=== PATIENT | female | born 1945 | race Caucasian/White ===

== ENCOUNTER → 2016-09-10 | Day surgery (SDC) | payer OTHER, BC ==
[2016-08-27 10:57] VITALS: Ht 160 cm; Wt 61.4 kg
[~2016-09-10] VITALS: Ht 160 cm; Wt 61.4 kg
[~2016-09-10] MED LIST: 500ML BSS 0.3ML EPI 1:1000PF IRRIG ONE; ACETAMINOPHEN 325 MG TAB PO PRN; ADRENAL SUPPLEMENT PO; AMVISC PLUS 0.8ML SYRINGE INT OCU ONE; ATROPINE SULFATE 0.1 MG/ML 5ML SYR IV PRN; AcetaZOLAMIDE 250 MG TAB PO SCH; BETAXOLOL HCL 0.25% OP SUSP PER DROP CHARGE OPR SCH; BRIMONIDINE TART 0.2% OP SOLN PER DROP CHARGE ONE; ENDOCOAT 0.85ML SYRINGE INT OCU ONE; EpHEDrine SULFATE INJ 50 MG/ML AMP IV PRN; EpINEphrine INJ 1MG/ML AMP 1 MG/ML AMP ONE; LACTATED RINGER'S 1000ML 500 ML IV SCH; LIDOCAINE 4% OP SOLN DROP CHARGE ONE; LIDOCAINE 4% OP SOLN DROP CHARGE OPR SCH; LIDOCAINE HCL 1% MPF 2 ML VIAL ONE; MAGNESIUM CHELATE PO; MIDAZOLAM HCL 1 MG/ML 2ML VIAL ONE; MIX: 4ML BSS 1ML EPI 1:1000 PF INSTIL ONE; MOXIFLOXACIN OPH SOLN PER DROP CHARGE ONE; NUTRITIONAL PO; OCUCOAT 1 ML SOLN IO ONE; POVIDONE-IODINE OP SOLN 30 ML BTL ONE; PROPARACAINE 0.5% OP SOLN PER DROP CHARGE OPR SCH; TOBRAMYCIN/DEXAMETHASONE OPH OINT PER APPLN CHARGE ONE
--- NOTE | 2016-09-10 06:27 | History & Physical Bridge - [place] ---
H&P Re-Evaluation Bridge Note: I have examined the patient, reviewed the History & Physical and in the interval since the performance of the History & Physical I have noted the following changes of clinical significance: No changes noted
[2016-09-10] MEDS: PHENYLEPHRINE HCL 2.5% OP SOLN PER DROP CHARGE OPR SCH ×2 (06:53→06:58)
[2016-09-10] MEDS: TROPICAMIDE 1% OP SOLN PER DROP CHARGE OPR SCH ×2 (06:54→06:59)
[2016-09-10] MEDS: CYCLOPENTOLATE HCL 1% OP SOLN PER DROP CHARGE OPR SCH ×2 (06:55→07:00)
[2016-09-10] MEDS: MOXIFLOXACIN OPH SOLN PER DROP CHARGE OPR SCH ×2 (06:56→07:02)
--- NOTE | 2016-09-10 07:19 | Discharge Instructions-SurgCtr ---
Discharge Instructions Visit Reason for Visit: Cataract Right Eye Discharge Discharge Diagnosis / Problem: Lens implant right eye Discharge Goals Goal(s): Improve function Activity Recommendations Activity Limitations: resume your previous activity Lifting Limitations: no more than 10 pounds Exercise/Sports Limitations: gradually increase as tolerated May Resume Sexual Activity: when tolerated Shower/Bathe: tomorrow Driving or Machine Use: resume 1 day after discharge Anesthesia . Post Anesthesia Instructions: If you have had General Anesthesia or IV Sedation: * Do not drive today. * Resume driving when surgeon permits. * Do not make important decisions or sign legal documents today. * Call surgeon for: 1. Temperature elevations greater than 101 degrees F. 2. Uncontrollable pain. 3. Excessive bleeding. 4. Persistent nausea and vomiting. 5. Medication intolerance (nausea, vomiting or rash). * For nausea and vomiting use only clear liquids such as: tea, soda, bouillon until nausea subsides, then gradually increase diet as tolerated. * If you have any concerns or questions, call your surgeon's office. If physician is unavailable and it is an emergency, call 911 or go to the nearest emergency room. . Instructions / Follow-Up Instructions / Follow-Up ACTIVITY RECOMMENDATIONS: * Light activities. * Mild irritation and blurred vision are common for the first few days. * You may walk outside, read, watch television. * Redness around the white part of the eye is common. MEDICATIONS: Resume previous medications unless instructed otherwise by your surgeon. * Take white Diamox (Acetazolamide) tablet at 1 pm today. Start all eye drops at 1 pm today: * Eye drops (today and tomorrow): Durezol - one drop in operative eye every 3 hours while awake Ofloxacin - one drop in operative eye every 3 hours while awake SPECIAL CARE INSTRUCTIONS: * Tape plastic shield over eye to sleep at night. Call your doctor at with any concerns or problems. FOLLOW UP VISIT: Follow-up with Dr Merlos at [place] office as scheduled. Diet Recommendations Home Diet: no limitations Procedures Procedures Performed: cataract extraction with lens implant Pending Studies Studies pending at discharge: no Medical Emergencies . Who to Call and When: Medical Emergencies: If at any time you feel your situation is an emergency, please call 911 immediately. . Non-Emergent Contact Non-Emergency issues call your: Paver Layer Call Non-Emergent contact if: your pain is not controlled [phone] . . "Provider Documentation" section prepared by Elbert Merlos.
--- NOTE | 2016-09-10 07:22 | [facility] Operative Report ---
Operative Report 1. PREOPERATIVE DIAGNOSIS: Senile nuclear cataract, right eye. 2. POSTOPERATIVE DIAGNOSIS: Senile nuclear cataract, right eye. 3. PROCEDURE: Phacoemulsification of right cataract with posterior chamber lens implant, type Bausch & Lomb, model [id number], power +29.0 diopters. ANESTHESIA: Local standby. SURGEON: Dr. Merlos. COMPLICATIONS: None. OPERATING TIME: 10 minutes. 4. OPERATION AND FINDINGS: DESCRIPTION OF PROCEDURE: The right pupil was dilated. The anesthetic was administered using a topical technique. The cornea was marked. The right eye was prepped and draped. A speculum was placed. A clear corneal incision was formed. The chamber was filled with Amvisc Plus and Endocoat. Epinephrine solution was used. A paracentesis was placed. A capsulorrhexis was performed. The nucleus was hydrodissected. The lens was removed with phacoemulsification. Time was 2.94 seconds. The aspiration unit was used to remove the cortex. The capsule was filled with Amvisc Plus. The lens implant was folded and placed into the capsule. The lens implant was positioned properly. The incision was hydrated. The Amvisc was aspirated. The wound was secure. The chamber was deep. The pupil was round. TobraDex ointment and Vigamox solution were placed. The speculum was removed. The patient was returned to the Recovery Room in stable condition. I attest to the content of the Intraoperative Record and any orders documented therein. Any exceptions are noted below. The scribe's documentation has been prepared in my presence, under my direction and personally reviewed by me in its entirety. I confirm that the note above accurately reflects all work, treatment, procedures, and medical decision making performed by me. I personally scribed for Elbert Merlos M.D. ([email or web address]) on 09/10/16 at 07:22. Electronically submitted by Gia Ann ([facility]).
[2016-09-10 07:23] VITALS: TEMP 36.7
[2016-09-10 07:45] VITALS: BP 100/67; PULSE 81; O2SAT 97
--- NOTE | 2016-09-10 07:48 | Anesthesiology Progress Note ---
Anesthesia Post Op Note Date & Time Sep 10, 2016 at 07:48 Vital Signs Pain Intensity: 0 Vital Signs Past 12 Hours Date Time Temp Pulse Resp B/P Pulse Ox O2 Delivery O2 Flow Rate FiO2 09/10/16 07:23 36.7 72 16 110/65 98 Room Air 09/10/16 06:41 36.7 88 20 109/62 96 Room Air Notes Mental Status: alert / awake / arousable, participated in evaluation Pt Amnestic to Procedure: Yes Nausea / Vomiting: adequately controlled Pain: adequately controlled Airway Patency, RR, SpO2: stable & adequate BP & HR: stable & adequate Hydration State: stable & adequate Anesthetic Complications: no major complications apparent
== END | disposition home or self-care (01) ==
LOC: X.SURG 06:25
PROVIDERS: ATTEND Specialist
DX: H25.11 Age-related nuclear cataract, right eye (principal)

== ENCOUNTER → 2016-09-22 | Day surgery (SDC) | payer OTHER, BC ==
[2016-09-19 08:02] VITALS: Ht 160 cm; Wt 61.4 kg
[~2016-09-22] VITALS: Ht 160 cm; Wt 61.4 kg
[~2016-09-22] MED LIST changes: -ACETAMINOPHEN 325 MG TAB PO PRN; +BETAXOLOL HCL 0.25% OP SUSP PER DROP CHARGE OPL SCH; -BETAXOLOL HCL 0.25% OP SUSP PER DROP CHARGE OPR SCH; +BSS FLUSH ONE; +LIDOCAINE 4% OP SOLN DROP CHARGE OPL SCH; -LIDOCAINE 4% OP SOLN DROP CHARGE OPR SCH; +PROPARACAINE 0.5% OP SOLN PER DROP CHARGE OPL SCH; -PROPARACAINE 0.5% OP SOLN PER DROP CHARGE OPR SCH
[2016-09-22] MEDS: PHENYLEPHRINE HCL 2.5% OP SOLN PER DROP CHARGE OPL SCH ×2 (06:33→06:38)
[2016-09-22] MEDS: TROPICAMIDE 1% OP SOLN PER DROP CHARGE OPL SCH ×2 (06:34→06:39)
[2016-09-22] MEDS: CYCLOPENTOLATE HCL 1% OP SOLN PER DROP CHARGE OPL SCH ×2 (06:35→06:40)
[2016-09-22] MEDS: MOXIFLOXACIN OPH SOLN PER DROP CHARGE OPL SCH ×2 (06:36→06:46)
[2016-09-22 07:18] VITALS: TEMP 36.5
--- NOTE | 2016-09-22 07:27 | [facility] Post Operative Brief Note ---
Immediate Operative Summary Operative Date Sep 22, 2016. Pre-Operative Diagnosis Cataract left eye Post-Operative Diagnosis same Procedure(s) Performed Left Cataract Phacoemulsification With Intraocular Lens Implant Surgeon Dr Merlos Office Machine Installer Surgeon(s) 0 Estimated Blood Loss 0 Findings Nuclear cataract Fluids (cc crystalloids) 300 ml Specimens 0 Drains none Anesthesia L/S Complication(s) None Disposition Recovery Room / PACU
--- NOTE | 2016-09-22 07:30 | Discharge Instructions-SurgCtr ---
Discharge Instructions Visit Reason for Visit: Cataract Left Eye Discharge Goals Goal(s): Improve function Activity Recommendations Lifting Limitations: no more than 10 pounds Exercise/Sports Limitations: gradually increase as tolerated May Resume Sexual Activity: when tolerated Shower/Bathe: tomorrow Driving or Machine Use: resume 1 day after discharge Anesthesia . Post Anesthesia Instructions: If you have had General Anesthesia or IV Sedation: * Do not drive today. * Resume driving when surgeon permits. * Do not make important decisions or sign legal documents today. * Call surgeon for: 1. Temperature elevations greater than 101 degrees F. 2. Uncontrollable pain. 3. Excessive bleeding. 4. Persistent nausea and vomiting. 5. Medication intolerance (nausea, vomiting or rash). * For nausea and vomiting use only clear liquids such as: tea, soda, bouillon until nausea subsides, then gradually increase diet as tolerated. * If you have any concerns or questions, call your surgeon's office. If physician is unavailable and it is an emergency, call 911 or go to the nearest emergency room. . Diet Recommendations Home Diet: no limitations, resume previous diet Procedures Procedures Performed: Left Cataract Phacoemulsification With Intraocular Lens Implant Pending Studies Studies pending at discharge: no Medical Emergencies . Who to Call and When: Medical Emergencies: If at any time you feel your situation is an emergency, please call 911 immediately. . Non-Emergent Contact Non-Emergency issues call your: [employer] Call Non-Emergent contact if: your pain is not controlled . ACTIVITY RECOMMENDATIONS: * Light activities. * Mild irritation and blurred vision are common for the first few days. * You may walk outside, read, watch television. * Redness around the white part of the eye is common. MEDICATIONS: Resume previous medications unless instructed otherwise by your surgeon. * Take white Diamox (Acetazolamide) tablet at 1 pm today. Start all eye drops at 1 pm today: * Eye drops (today and tomorrow): Prednisone - one drop in operative eye every 3 hours while awake Ofloxacin - one drop in operative eye every 3 hours while awake SPECIAL CARE INSTRUCTIONS: * Tape plastic shield over eye to sleep at night. Call your doctor at with any concerns or problems. FOLLOW UP VISIT: Follow-up with Dr Merlos at [facility] as scheduled. . "Provider Documentation" section prepared by Elbert Merlos.
[2016-09-22 07:33] VITALS: BP 107/63; PULSE 75; O2SAT 98
--- NOTE | 2016-09-22 07:47 | OPERATIVE REPORT ---
DATE OF OPERATION: 09/22/2016 PREOPERATIVE DIAGNOSIS: Senile nuclear cataract, left eye. POSTOPERATIVE DIAGNOSIS: Senile nuclear cataract, left eye. PROCEDURE: Phacoemulsification of left cataract with posterior chamber lens implant, type Bausch \T\ Lomb, model [id number], power +26.50 Diopters. ANESTHESIA: Local standby. SURGEON: Dr. Merlos. COMPLICATIONS: None. OPERATING TIME: 10 minutes. OPERATION AND FINDINGS: PROCEDURE: The left pupil was dilated. The anesthetic was administered using a topical technique. The left eye was prepped and draped. A speculum was placed. A paracentesis was placed. The chamber was filled with Amvisc Plus and EndoCoat. Epinephrine solution was used. A clear corneal incision was formed. A capsulorrhexis was performed. The nucleus was hydrodissected. The lens was removed with phacoemulsification. Time was 3.39 seconds. The aspiration unit was used to remove the cortex. The capsule was filled with Amvisc Plus. The lens implant was folded and placed into the capsule. The incision was hydrated. The Amvisc was aspirated. The wound was secure. The chamber was deep. The pupil was round. TobraDex ointment and Vigamox solution were placed. The speculum was removed. DISPOSITION: The patient was returned to the recovery room in stable condition. I attest to the content of the Intraoperative Record and any orders documented therein. Any exceptions are noted below. I attest to the content of the Intraoperative Record and any orders documented therein. Any exceptio ns are noted below.
--- NOTE | 2016-09-22 07:50 | Anesthesia Progress Nt - [facility] ---
Anesthesia Post Op Note Date & Time Sep 22, 2016 at 07:50 Vital Signs Pain Intensity: 0 Vital Signs Past 12 Hours Date Time Temp Pulse Resp B/P Pulse Ox O2 Delivery O2 Flow Rate FiO2 09/22/16 07:33 75 16 107/63 98 Room Air 09/22/16 07:18 36.5 64 20 161/67 97 Room Air 09/22/16 06:25 36.5 67 22 94/57 96 Room Air Notes Mental Status: alert / awake / arousable, participated in evaluation Pt Amnestic to Procedure: Yes Nausea / Vomiting: adequately controlled Pain: adequately controlled Airway Patency, RR, SpO2: stable & adequate BP & HR: stable & adequate Hydration State: stable & adequate Anesthetic Complications: no major complications apparent
== END | disposition home or self-care (01) ==
LOC: X.SURG 06:03
PROVIDERS: ATTEND Specialist
DX: H25.12 Age-related nuclear cataract, left eye (principal)

== ENCOUNTER → 2017-03-12 | Outpatient (CLI) | payer OTHER, BC ==
[~2017-03-12] MED LIST changes: -500ML BSS 0.3ML EPI 1:1000PF IRRIG ONE; -AMVISC PLUS 0.8ML SYRINGE INT OCU ONE; -ATROPINE SULFATE 0.1 MG/ML 5ML SYR IV PRN; -AcetaZOLAMIDE 250 MG TAB PO SCH; -BETAXOLOL HCL 0.25% OP SUSP PER DROP CHARGE OPL SCH; -BRIMONIDINE TART 0.2% OP SOLN PER DROP CHARGE ONE; -BSS FLUSH ONE; -ENDOCOAT 0.85ML SYRINGE INT OCU ONE; -EpHEDrine SULFATE INJ 50 MG/ML AMP IV PRN; -EpINEphrine INJ 1MG/ML AMP 1 MG/ML AMP ONE; -LACTATED RINGER'S 1000ML 500 ML IV SCH; -LIDOCAINE 4% OP SOLN DROP CHARGE ONE; -LIDOCAINE 4% OP SOLN DROP CHARGE OPL SCH; -LIDOCAINE HCL 1% MPF 2 ML VIAL ONE; -MIDAZOLAM HCL 1 MG/ML 2ML VIAL ONE; -MIX: 4ML BSS 1ML EPI 1:1000 PF INSTIL ONE; -MOXIFLOXACIN OPH SOLN PER DROP CHARGE ONE; -OCUCOAT 1 ML SOLN IO ONE; -POVIDONE-IODINE OP SOLN 30 ML BTL ONE; -PROPARACAINE 0.5% OP SOLN PER DROP CHARGE OPL SCH; -TOBRAMYCIN/DEXAMETHASONE OPH OINT PER APPLN CHARGE ONE
--- NOTE | 2017-03-12 14:06 | DIAGNOSTIC IMAGING REPORT ---
THYROID ULTRASOUND HISTORY: THYROIDITIS COMPARISON: Thyroid ultrasound 11/15/2013. FINDINGS: Right lobe: 4.0 x 1.6 x 0.9 cm No nodules. Left lobe: 2.9 x 1.1 x 0.9 cm. No nodules. Isthmus: 2 mm in thickness. No nodules. Normal color flow within the thyroid gland. The thyroid gland is slightly heterogeneous. IMPRESSION: Normal thyroid ultrasound. Electronically signed by: Richard Squires M.D. 03/12/2017 2:05 PM Dictated Date/Time: 03/12/2017 2:04 PM
== END | disposition home or self-care (01) ==
LOC: C.ULTR 13:05
PROVIDERS: ATTEND Family Medicine
DX: E06.3 Autoimmune thyroiditis (principal)

== ENCOUNTER → 2017-06-11 | Outpatient (CLI) | payer OTHER, BC ==
--- NOTE | 2017-06-11 12:44 | DIAGNOSTIC IMAGING REPORT ---
ABDOMINAL ULTRASOUND COMPLETE HISTORY: Abdominal fullness.. COMPARISON: None. FINDINGS: Pancreas: The pancreas demonstrates a normal echotexture. Liver: Unremarkable. Gallbladder: A few small shadowing gallstones. No gallbladder wall thickening. CBD: 3 mm. Kidneys: No hydronephrosis. Spleen: Normal in size. Aorta: Normal in caliber. IVC: Patent. IMPRESSION: 1. Cholelithiasis. No gallbladder wall thickening. 2. Otherwise, normal abdominal ultrasound. Electronically signed by: Richard Squires M.D. 06/11/2017 12:43 PM Dictated Date/Time: 06/11/2017 12:41 PM
== END | disposition home or self-care (01) ==
LOC: C.ULTR 11:08
PROVIDERS: ATTEND Family Medicine
DX: R19.8 Other specified symptoms and signs involving the digestive system and abdomen (principal); M46.1 Sacroiliitis, not elsewhere classified; M76.30 Iliotibial band syndrome, unspecified leg; M70.61 Trochanteric bursitis, right hip

== ENCOUNTER 2025-06-09 05:25 | Observation (INO) ==
--- NOTE | 2025-05-10 13:01 | PAT Medication Instructions ---
Medication Instructions Date of Service May 10, 2025 Home Medications bioidentical estriol, progesterone, testosterone 1 applic PO DAILY estradiol 0.01% (0.1 mg/gram) vaginal cream 1 appful vaginal DAILY Ferrasorb - Iron 1 tab PO DAILY iodine 1 cap PO DAILY magnesium chelate, malate 1 cap PO DAILY magnesium glycinate 1 cap PO DAILY prasterone (DHEA) 25 mg capsule 25 mg PO DAILY tyrosine 1 cap PO DAILY ASK your prescriber and surgeon bioidentical estriol, progesterone, testosterone 1 applic PO DAILY STOP taking 2 weeks before surgery (or as soon as possible if surgery is within 2 weeks) prasterone (DHEA) 25 mg capsule 25 mg PO DAILY tyrosine 1 cap PO DAILY STOP taking 24 hours before surgery estradiol 0.01% (0.1 mg/gram) vaginal cream 1 appful vaginal DAILY DO NOT take the morning of surgery Ferrasorb - Iron 1 tab PO DAILY iodine 1 cap PO DAILY magnesium chelate, malate 1 cap PO DAILY magnesium glycinate 1 cap PO DAILY Take morning of surgery With a small sip of water, OTHERWISE NOTHING TO EAT OR DRINK AFTER MIDNIGHT: Other Notes If you have any questions please call us at [phone] or [phone] or [phone] or [phone]
--- NOTE | 2025-05-15 15:44 | Anesthesiology Consultation ---
Date of Service May 15, 2025 Assessment & Plan (1) Encounter for pre-operative examination: Chart Review Chart Review: Acceptable Risk for Surgery and Patient seen in Pre Admission Testing Patient sensitive to medications - Patient is not an ideal OPJ candidate (currently 23 hour obs) Per PAT appt on 05/15/25, no recent illness/disease exposures, illness related symptoms, or recent illness/disease positive tests. Will leave to surgeon's discretion if preop Covid testing needed Teaching & Discussion Pre-Anesthesia Teaching/Discussion Notes: Instructed NPO after midnight before surgery,except medications with 15 cc of water. Medication instructions provided according to the PAT guidelines. History Surgery Operation Date: 06/09/25 07:00 Proposed Procedures p Left Total Knee Arthroplasty - Joni Mauro MD Height/Weight Height: 5 ft 3 in Weight: 63.9 kg Allergies Allergy/AdvReac Type Severity Reaction Status Date / Time adhesive Allergy Intermediate Redness Verified 05/05/25 09:01 erythromycin base AdvReac Intermediate Racing Mind Verified 05/05/25 09:01 glucose AdvReac Intermediate Gastrointestinal Verified 05/05/25 09:01 Upset casein AdvReac Mild Gastrointestinal Verified 05/05/25 09:01 Upset gluten AdvReac Mild Sensitivity Verified 05/05/25 09:01 Newspaper Allergy Intermediate Itchiness Uncoded 05/05/25 09:01 Medications Home Medications Medication Instructions Recorded Confirmed Last Taken bioidentical estriol, 1 applic PO DAILY 06/02/23 05/05/25 Unknown progesterone, testosterone estradiol 0.01% (0.1 mg/gram) 1 appful vaginal DAILY 08/18/24 05/05/25 Unknown vaginal cream Ferrasorb - Iron 1 tab PO DAILY 05/05/25 05/05/25 Unknown iodine 1 cap PO DAILY 05/05/25 05/05/25 Unknown magnesium chelate, malate 1 cap PO DAILY 05/05/25 05/05/25 Unknown magnesium glycinate 1 cap PO DAILY 05/05/25 05/05/25 Unknown prasterone (DHEA) 25 mg capsule 25 mg PO DAILY 05/05/25 05/05/25 Unknown tyrosine 1 cap PO DAILY 05/05/25 05/05/25 Unknown Past Medical History Medical History (Updated 05/16/25 @ 09:30 by Tania Thayer PA-C) Adverse effect of anesthesia Slow to wake Chronic pain Connective Tissue disorder Follows with [facility]" Gets routine massages and follows with chiropractor - keeps symptoms stable and controlled Graves disease History of hyperthyroidism - now follows with a Functional Doctor in [place] Dr Vazquez for "thyroid support" - Takes DHEA, iodine and tyrosine - TSH WNL on preop labs 05/15/25 Hx of Lyme disease early completed antibiotic feels connective tissue order occurred after Lyme Exercise / Class Metabolic Activity II 4-5 Yardwork/Stairs/Walk up hill (one flight of stairs - no chest pain or SOB ) Past Family History Family History Mother Breast cancer Denies family history of Ovarian cancer Prostate cancer Myocardial infarction Colorectal cancer Past Surgical History Surgical History History of colonoscopy Hx of appendectomy Hx of tonsillectomy Past Anesthesia History No Hx of Anesthesia Complications (with exception to slow to wake- just groggy- no reintubation or ICU stay ) and No Family Hx of Anesthesia Complications History of PONV No Hx of Motion Sickness and History of PONV (only with childbirth ) Social History Smoking Status: Never smoker Do You Dip or Chew Tobacco: No Hx Alcohol Use: Yes Alcohol type: hard liquor alcohol intake frequency: holidays/special occasions only Hx Substance Use: No substance use type: does not use Review of Systems Patient denies chest pain, shortness of breath, dyspnea on exertion, reflux, cough, wheezing, palpitations. No hx of seizures, stroke, CA, apnea/snoring. No hx of blood clots or blood transfusions Physical Exam Vital Signs VITALS BP 126/76 P 76 TEMP 97.5 SP02 94% RESP 16 Constitutional no acute distress ENMT Mouth: no TMJ clicking Thyromental Distance: > or= 3.5 Finger Breadths (3.5) Mallampati Class: II Missing molar Caps to top front teeth (six teeth) and one molar Neck neck extension not limited Respiratory normal respiratory effort; no respiratory distress Auscultation: lungs clear to auscultation bilaterally; no wheezes Cardiovascular Rate/Rhythm: regular rate and regular rhythm Heart Sounds: no murmur (no significant murmur noted on exam) Vessels: no carotid bruit Musculoskeletal Spine: no pain with cervical ROM Extremities: extremities normal to inspection Psychiatric Orientation: alert Lab Results Anesthesia Preop Results Results Anesthesia Widget: WBC 10.07 K/ul (4.8-10.8) 05/15/25 Hgb 13.7 g/dl (12.0-16.0) 05/15/25 Hct 41.2 % (37.0-47.0) 05/15/25 Plt 301 K/uL (130-400) 05/15/25 Na 137 mmol/L (136-145) 05/15/25 K 4.1 mmol/L (3.5-5.1) 05/15/25 Cl 102 mmol/L (98-107) 05/15/25 CO2 28 mmol/L (21-32) 05/15/25 BUN 17 mg/dl (6-23) 05/15/25 Creat 0.69 mg/dl (0.6-1.2) 05/15/25 Glucose Level 95 mg/dl (70-99(Fasting)) 05/15/25 PT 10.3 Seconds (9.0-12.0) 05/15/25 PTT 30 Seconds (21-31) 05/15/25 INR 1.0 (0.9-1.1) 05/15/25 TSH 4.259 uIu/ml (0.300-4.500) 05/15/25 Blood Type A Positive 05/15/25 Antibody Screen NEGATIVE 05/15/25 Testing Electrocardiogram Date: 05/15/25 Findings: + NSR @ (74bpm) Normal EKG per cardio Chest X-Ray Date: 05/15/25 Findings: + NAD
--- NOTE | 2025-05-31 19:57 | History & Physical Report ---
Date of Service May 31, 2025 Assessment & Plan (1) Degenerative arthritis of knee, bilateral: 79-year-old female with bilateral knee pain and arthritis. The left side is clearly worse than the right clinically as well as on radiographs. He has failed conservative treatment like to have her left knee replaced. Plan: We are going to plan on taken to the operating room due to left knee replacement. The risks and benefits of this procedure explained. Informed consent was obtained. Will use aspirin for DVT prophylaxis. (2) Breast cancer screening other than mammogram: (3) Heterogeneously dense tissue of both breasts on mammography: (4) Family history of malignant neoplasm of breast: History of Present Illness Chief Complaint: Bilateral knee pain discomfort left side greater than the right.. Primary Care Provider: Kelsey Walker DO . The patient is a 79-year-old female who now presents for treatment of her knees. She has a long history of bilateral knee pain discomfort described to gotten worse over time. She been followed by [facility] orthopedics and treated with extensive injections which has do not help anymore. Left knee bothers her more than the right. Is global pain. She is try to stay active but having difficulty due to the pain. She to proceed with the surgical treatment. Allergies Allergy/AdvReac Type Severity Reaction Status Date / Time adhesive Allergy Intermediate Redness Verified 05/05/25 09:01 erythromycin base AdvReac Intermediate Racing Mind Verified 05/05/25 09:01 glucose AdvReac Intermediate Gastrointestinal Verified 05/05/25 09:01 Upset casein AdvReac Mild Gastrointestinal Verified 05/05/25 09:01 Upset gluten AdvReac Mild Sensitivity Verified 05/05/25 09:01 Newspaper Allergy Intermediate Itchiness Uncoded 05/05/25 09:01 Home Medications Medication Instructions Recorded Confirmed Type bioidentical estriol, 1 applic PO DAILY 06/02/23 05/05/25 History progesterone, testosterone estradiol 0.01% (0.1 mg/gram) 1 appful vaginal DAILY 08/18/24 05/05/25 History vaginal cream Ferrasorb - Iron 1 tab PO DAILY 05/05/25 05/05/25 History iodine 1 cap PO DAILY 05/05/25 05/05/25 History magnesium chelate, malate 1 cap PO DAILY 05/05/25 05/05/25 History magnesium glycinate 1 cap PO DAILY 05/05/25 05/05/25 History prasterone (DHEA) 25 mg capsule 25 mg PO DAILY 05/05/25 05/05/25 History tyrosine 1 cap PO DAILY 05/05/25 05/05/25 History Past Med/Surg History Problem List Encounter for pre-operative examination Breast cancer screening other than mammogram Heterogeneously dense tissue of both breasts on mammography Chronic pain Dense breast tissue Family history of malignant neoplasm of breast MOTHER - BILATERAL BREAST CANCER DX AT 71 Leg pain Degenerative arthritis of knee, bilateral Postmenopausal bleeding Medical History History of hyperthyroidism - now follows with a Functional Doctor in [place] Dr Vazquez for "thyroid support" - Takes DHEA, iodine and tyrosine - TSH WNL on preop labs 05/15/25 Chronic pain Connective Tissue disorder Follows with [facility]" Gets routine massages and follows with chiropractor - keeps symptoms stable and controlled Adverse effect of anesthesia Slow to wake Hx of Lyme disease early completed antibiotic feels connective tissue order occurred after Lyme Graves disease Surgical History History of colonoscopy Hx of appendectomy Hx of tonsillectomy Family History Mother Breast cancer Denies family history of Ovarian cancer Prostate cancer Myocardial infarction Colorectal cancer Social History Smoking Status: Never smoker Second Hand Exposure: No; Do You Dip or Chew Tobacco: No; Hx Alcohol Use: Yes Alcohol type: hard liquor Hx Substance Use: No Preferred Language: Cook Islander Communication Ability: Effective Car Knocker Required: No Beliefs That Will Affect Care: None Current Living Situation: Spouse Feels Safe at Home: Yes Assistive Devices: Glasses Review of Systems All systems reviewed & are unremarkable except as noted in HPI & below. Physical Exam . Physical examination was a pleasant middle-age female. She ambulates independently. Examination of the left knee reveals a fairly neutral alignment to the knee. Small knee effusion. Range of motion 0-1 25. No instability. No pain with hip motion. Examination right knee reveals fairly neutral alignment. Minimal knee effusion. Mild tenderness. Range of motion 0-1 25. No instability. Neck trachea midline, no thyromegaly Respiratory normal respiratory effort, lungs clear to auscultation Cardiovascular RRR, no murmur, no edema Gastrointestinal (Abdomen) normal bowel sounds, soft, nontender, no hepatosplenomegaly Results & Data Results & Data Laboratory Results . Diagnostic Findings . X-rays of the knees were reviewed. It shows moderate to advanced left knee arthritis and fairly mild right knee arthritis. 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 MRI of the left knee was also reviewed. It shows extensive degenerative changes throughout the knee primarily in the medial and patellofemoral compartments. Scattered full-thickness cartilage loss. Small Murcia's cyst. PG Care Time/CCT Total # of Minutes Spent Total Time Spent with Patient: Total time spent is greater than 50% in coordination of care (as documented) at patient's floor/unit and/or counseling patient: Coding Level of Care Code None Diagnoses Degenerative arthritis of knee, bilateral M17.0 Breast cancer screening other than mammogram Z12.39 Heterogeneously dense tissue of both breasts on mammography R92.333 Family history of malignant neoplasm of breast Z80.3
[2025-06-09] MEDS: METOCLOPRAMIDE HCL 10 MG TABLET PO SCH (06:16)
[2025-06-09] MEDS: CeleBREX 200 MG CAP PO SCH (06:16)
[2025-06-09] MEDS: FAMOTIDINE 20 MG TAB PO SCH (06:16)
[2025-06-09] MEDS: ACETAMINOPHEN 500 MG TAB PO SCH ×2 (06:16→15:22)
[2025-06-09] MEDS: LR 500ML BOLUS, THEN 15ML/HR IV SCH (06:16)
[2025-06-09] MEDS: LR 60ML/HR IV SCH (06:17)
[2025-06-09] MEDS: dexAMETHasone**PF** 10 MG/ML VIAL IV SCH (06:17)
[2025-06-09] MEDS ORDERED: BUPIVACAINE 0.25% PF 30 ML VIAL ONE (06:34)
[2025-06-09] MEDS ORDERED: BUPIVACAINE 0.5 % 5 MG/1 ML PF 10ML VIAL ONE (06:34)
[2025-06-09] MEDS ORDERED: MIDAZOLAM HCL 1 MG/ML 2ML VIAL ONE ×2 (06:35→06:50)
[2025-06-09] MEDS ORDERED: PROPOFOL IV EMULSION 10 MG/ML 20 ML VIAL IV ONE ×2 (06:35→07:54)
--- NOTE | 2025-06-09 06:48 | History & Physical Bridge Note ---
Date of Service June 09, 2025 History & Physical Bridge Note I have examined the patient, reviewed the History & Physical and in the interval since the performance of the History & Physical I have noted the following changes of clinical significance: no changes noted
[2025-06-09] MEDS ORDERED: ATROPINE SULFATE 0.1 MG/ML 10ML SYR IV PRN (07:00)
[2025-06-09] MEDS: ORTHO JOINT ANESTHETIC ONE (07:34)
[2025-06-09] MEDS ORDERED: PHENYLEPHRINE 100MCG/ML 5ML SYR ONE (07:38)
[2025-06-09] MEDS: ROPIV 0.5% 246mg, Ketorolac 30mg, EPINEPHrine 0.5mg in NSS INFIL SCH (08:12)
--- NOTE | 2025-06-09 09:03 | Operative Report ---
PG Post Operative Report Pre & Post Diagnosis Operation Date: 06/09/25 07:00 Pre-Op Diagnosis: Left Knee Osteoarthritis Post-Op Diagnosis: Left Knee Osteoarthritis I identified the patient and participated in the time-out.: Yes Procedure Operation Date: 06/09/25 07:00 Actual Procedures p Left Total Knee Arthroplasty(Left) - Joni Mauro MD Surgeon Joni Mauro MD Header Boss Dennis Lim PA-C Estimated Blood Loss 50 Findings Consistent with Post-Op Diagnosis Operative findings were advanced left knee DJD. She had extensive grade 4 [id number] disease of the patellofemoral joint with eburnation on both sides of the joint. She had spotty grade 4 changes in the medial and lateral compartments. Moderate-sized joint effusion. Specimens Left knee sent for pathology. Anesthesia Type Spinal MAC Complications none Disposition Accompanied Patient To Recovery: No Indications Patient is a 79-year-old female has had a several year history of increasing left knee pain discomfort described to gotten worse over time. She been through extensive conservative treatment which became less successful. X-rays show progressive arthritis in her knee most advanced in the medial and patellofemoral compartments. She failed conservative measures and elected proceed with total knee arthroplasty. Description of Procedure Operative implants consist of: 1 Biomet Vanguard size 62.5 left posterior stabilized femoral component. 2. Biomet size 67 tibial tray. 3. 10 mm posterior stabilized polyethylene insert. 4. 28 x 8 all poly patella. The patient was taken to the op room, identified, placed on the operating table in the supine position. All contact areas were appropriately padded. IV antibiotics were provided by anesthesia team. A spinal anesthetic and adductor canal block had been provided in the holding area. A Beltrán catheter was placed in sterile fashion with a left phytate was then placed in the left lower extremities and prepped and draped in usual sterile fashion. The left leg was elevated exsanguinated with use of an Esmarch and tourniquet placed at 300 mmHg. An anterior approach to the left knee was then performed to longitudinal incision centered over the patella. Sharp dissection was carried out through the subcutaneous tissue down to the extensor mechanism. A medial parapatellar arthrotomy incision was made. Some subperiosteal dissection was carried out medially. The fat pad was reflected from the patella tendon. The lateral patellofemoral ligament was released. Patella subluxated laterally and the knee was flexed. The osteophytes taken off distal femur. The ACL and PCL were then released from the distal femur and the tibia subluxated anteriorly. The external treatment LYMErix then placed on the anterior face the tibia and adjusted 14 mm medially. The proximal tibial cut was made remove about 2 to 3 mm of bone off the medial side. Tibia sized to a size 67. Attention drawn the femur. The distal femur was entered with a sharp drill. Intramedullary canal was suction. A left 5 degree valgus cutting guide was placed. The distal femoral cutting block was pinned in place. This femoral cut was made to take an additional 3 mm of bone off distal femur. The femur was then sized to a size 62.5. The AP cutting block was pinned parallel to the epicondylar axis which was 5 degrees of external rotation. The anterior cut, anterior chamfer, posterior cut, posterior chamfer cuts were made. The box cutting guide was placed in the just slight laterally. The box cut was made. The knee was flexed. The remnants of the medial and lateral menisci were excised. The osteophytes taken off the posterior aspect of femur. A trial femoral component was placed. The tibial tray was pinned in Lucy external rotation and the drill and stem punch were used to create defect in proximal tibia for the tibial tray. The knee was then trialed and the 10 mm insert fit most appropriately. Attention then drawn the patella. The patella was cleaned of all soft tissue. Patella thickness measured by 18 mm in thickness was cut down to 12. Was sized to a size 28 patella. The lug holes were drilled for the 28 patella. The lateral osteophytes removed. Patella button was placed. Knee was taken through range of motion and the patella tracked nicely with no thumbs test. Attention was then drawn to place the permanent components. All trial components were removed. Bone plug was placed into distal femur to limit blood loss. A double batch Palacos G cement was mixed. Biomet Vanguard size 62.5 left posterior stabilized femoral component, size 67 tibial tray, 10 mm pro stabilized polyethylene insert, and a 28 x 8 all poly patella and then cemented in place. The knee was brought out into full extension till cement hardened. Final cement check was then performed. The pericapsular tissues were injected with a total of 100 cc of Ortho mix. Patient did receive 1 g tranexamic acid. The tourniquet was then let down for final tourniquet time 58 minutes. Hemostasis surges electrocautery. Extensor Meclomen then closed with combination 1 PDS suture and #1 Vicryl suture in a [id number] fashion. Extensor Meclomen checked found be intact to the subcutaneous tissue then closed with 2 Dexon suture in a buried interrupted fashion skin was closed skin kailee. Leg was then cleaned and dried and a sterile dressing with Xeroform, 4 fours, sterile cast padding, Kevin bandage were applied. The patient was then transferred to the recovery in stable condition. The patient tolerated the procedure well and there were no complications. Dennis Lim, my physician office services assistant, was present for the entire procedure. His assistance was essential and required for appropriate patient positioning, pr epping and draping, surgical exposure, performing the technical details of the operation, placement the implants, closure of the wound, and placement of the sterile bandage. I attest to the content of the Intraoperative Record and any orders documented therein. Any exceptions are noted below.
[2025-06-09] MEDS: ONDANSETRON INJ 2 MG/ML 2 ML VIAL IV PRN ×2 (09:22→11:59)
--- NOTE | 2025-06-09 09:42 | XRay Report ---
XR knee LT 1 or 2V routine CLINICAL HISTORY: Surgical Post Op COMPARISON: None FINDINGS: Left knee prosthesis shows no hardware complication. There is expected soft tissue gas. Sk in kailee are present. IMPRESSION: Unremarkable postoperative exam. ACT 112: Negative or not required by law. Electronically signed by: Silver Flor M.D. 06/09/2025 9:39 AM
[2025-06-09] MEDS ORDERED: HYDROmorphone INJ 0.5 MG/0.5 ML SYR IV PRN (11:08)
[2025-06-09] MEDS ORDERED: ALUMINUM/MAGNESIUM SUSP 30 ML UDC PO PRN (11:08)
[2025-06-09] MEDS ORDERED: NALOXONE HCL 0.4 MG/1 ML VIAL/CARP IV PRN (11:08)
[2025-06-09] MEDS ORDERED: MAGNESIUM HYDROXIDE SUSP 30 ML UDC PO PRN (11:08)
[2025-06-09] MEDS ORDERED: NON-FORMULARY MEDICATION (Estradiol 0.01 % (0.1 mg/gram) cream) PV SCH (11:08)
[2025-06-09] MEDS ORDERED: SENNA 8.6 MG TAB PO SCH (11:08)
[2025-06-09] MEDS ORDERED: PRASTERONE 25 MG PO SCH (11:08)
[2025-06-09] MEDS: SODIUM CHLORIDE 0.9% 1,000 ML IV SCH (12:15)
[2025-06-09] MEDS: KETOROLAC TROMETHAMINE 15 MG/ML VIAL IV SCH (12:19)
[2025-06-09] MEDS: ASPIRIN 81 MG ECTAB PO SCH (12:19)
[2025-06-09] MEDS: MULTIVITAMIN TAB PO SCH (12:19)
[2025-06-09] MEDS: DOCUSATE SODIUM 100 MG CAP PO SCH (12:19)
--- NOTE | 2025-06-09 14:46 | Anesthesiology Progress Note ---
Date of Service June 09, 2025 Anesthesia Post Procedure Vital Signs Vital Signs: Temp Pulse Resp BP Pulse Ox O2 Del Method O2 Flow Rate 06/09/25 13:00 36.5 C 80 16 112/71 98 Room Air 06/09/25 12:07 36.4 C L 82 18 118/70 97 Room Air 06/09/25 11:00 36.4 C L 71 18 105/66 97 Room Air 06/09/25 10:40 68 20 104/54 L 98 Room Air 06/09/25 10:30 82 15 109/61 99 Room Air 06/09/25 10:20 74 21 109/60 96 Room Air 06/09/25 10:10 65 16 102/61 95 Room Air 06/09/25 10:00 72 16 103/65 96 Room Air 06/09/25 09:50 36.4 C L 69 18 102/55 L 96 Room Air 06/09/25 09:40 71 15 103/57 L 94 Room Air 06/09/25 09:30 75 13 100/59 L 96 Room Air 06/09/25 09:20 80 14 103/56 L 97 Oxymask 2 06/09/25 09:10 75 18 109/61 99 Oxymask 5 06/09/25 09:02 36.6 C 86 16 115/72 99 Oxymask 10 06/09/25 05:53 36.5 C 72 18 131/80 97 Room Air Transfer of Care Handoff Completed per policy Notes Mental Status: alert / awake / arousable and participated in evaluation Patient Amnestic to Procedure: Yes Nausea / Vomiting: adequately controlled Pain: adequately controlled Airway Patency, RR, SpO2: stable & adequate BP & HR: stable & adequate Hydration State: stable & adequate Neuraxial Anesthesia: was administered and sensory block is resolving Anesthetic Complications: no major complications apparent and Pt Satisfied with anesthetic care
[2025-06-09] MEDS: TRANEXAMIC ACID / 0.7% NACL 1,000 MG/100 ML BAG IV SCH (15:23)
[2025-06-09] MEDS: ASCORBIC ACID 500 MG TAB PO SCH (16:37)
[2025-06-09] MEDS: SENNA 8.6 MG TAB PO SCH (20:55)
[2025-06-10] MEDS: METOCLOPRAMIDE HCL INJ 5 MG/ML 2 ML VIAL IV PRN (02:57)
--- NOTE | 2025-06-10 06:45 | Orthopedic Progress Note ---
Date of Service June 10, 2025 Assessment & Plan (1) Status post left knee replacement: Plan: 79-year-old female postop day 1 from left knee replacement doing quite well. Pains controlled. She is neurologically intact. Hoping to go home today. Plan: 1. DVT prophylaxis including thigh-high teds, SCDs, aspirin twice a day. 2. PT/OT. Weight-bear as tolerated. Left total knee protocol. 3. Pain control. Doing okay with current pain regimen. 4. Disposition. Plan is to discharge to home with some home therapy if does okay in therapy this morning. Admission and Anticipated Discharge Date Admission Date: June 09, 2025 Subjective 79-year-old female postop day 1 from left knee replacement. She is doing quite well. Pain is controlled. Had a good night. No chest pain or shortness of breath. Not feeling dizzy or lightheaded. Hoping to go home today. Physical Exam Physical Exam: Physical examination is a pleasant elderly female. Does she sit upright bedside chair and looks quite well. Examination of the left leg reveals the dressing be clean dry and intact. She can dorsiflex and plantarflex her foot appropriately. She can do a good straight leg raise. Respiratory: normal respiratory effort, lungs clear to auscultation Cardiovascular: RRR, no murmur, no edema Gastrointestinal (Abdomen): normal bowel sounds, soft, nontender, no hepatosplenomegaly Results & Data Vital Signs (Past 12 Hours) Vital Signs Temp Pulse Resp BP Pulse Ox O2 Del Method 06/10/25 04:20 36.7 C 59 L 18 110/55 L 94 Room Air 06/09/25 23:00 36.6 C 63 18 132/64 95 Room Air 06/09/25 21:10 Room Air 06/09/25 19:44 36.6 C 58 L 18 106/63 97 Room Air Laboratory Results Labs are pending.
[2025-06-10 06:50] LABS: Hematocrit (blood only) 31.5 % (37.0-47.0); Hemoglobin 10.7 g/dl (12.0-16.0); Mean Corpuscular Hemoglobin 30.0 pg (25.0-34.0); Mean Corpuscular Volume 88.2 fL (80.0-100.0); Platelet Count 222 K/uL (130-400); RDW Standard Deviation 45.0 fL (36.4-46.3); Red Blood Count 3.57 M/uL (4.20-5.40); White Blood Count 15.96 K/ul (4.8-10.8)
[2025-06-10 07:14] LABS: Anion Gap 7.0 (3-11); Blood Urea Nitrogen 27.0 mg/dl (6-23); Calcium 8.9 mg/dl (8.6-10.3); Carbon Dioxide 24.0 mmol/L (21-32); Chloride 103.0 mmol/L (98-107); Creatinine Clr Calc Pharmacy 51.1 ml/min; Glucose 148.0 mg/dl (70-99(Fasting)); Potassium 4.3 mmol/L (3.5-5.1); Sodium 134.0 mmol/L (136-145)
[2025-06-10] MEDS: dexAMETHasone 10 MG in SYRINGE 0 ML IV SCH (08:08)
== END 2025-06-10 10:54 | disposition home health service (06) ==
LOC: ASU 05:25 → 3W 05:25